=== PATIENT | male | born 1950 | race Caucasian/White ===

== ENCOUNTER 2021-05-25 11:17 | Outpatient (REF) | payer OTHER, SELFPAY ==
[2021-05-26 16:48] LABS: H Pylori Breath Test Negative (Negative)
== END 2021-05-25 11:18 | disposition home or self-care (01) ==
LOC: HO.LNP 11:17
PROVIDERS: PCP Internal Medicine; Visit Provider Nurse Practitioner Family
DX: K44.9 Diaphragmatic hernia without obstruction or gangrene (principal); K21.9 Gastro-esophageal reflux disease without esophagitis
CPT/HCPCS: 83013; 99202

== ENCOUNTER 2021-07-30 07:53 | Outpatient (REF) | payer OTHER, SELFPAY ==
[2021-07-30 10:04] LABS: TSH reflex Free T4 1.56 uIU/mL (0.32-4.0)
[2021-07-30 10:16] LABS: Folate 18.1 ng/mL (> or = 4.0); Vitamin B12 509 pg/mL (200-900)
[2021-08-02 22:36] LABS: Transglutaminase Ab IgG <1.0 U/mL; Transglutaminase IgA <1.0 U/mL
[2021-08-05 12:36] LABS: Vitamin D 25-OH, D2 <4 ng/mL; Vitamin D 25-OH, D3 43 ng/mL; Vitamin D 25-OH, Total 43 ng/mL (30-100)
== END 2021-07-30 07:54 | disposition home or self-care (01) ==
LOC: HO.LAB 07:53
PROVIDERS: PCP Internal Medicine; Visit Provider Nurse Practitioner Family
DX: R10.9 Unspecified abdominal pain (principal); K21.9 Gastro-esophageal reflux disease without esophagitis; R05.9 Cough, unspecified; R19.7 Diarrhea, unspecified; E55.9 Vitamin D deficiency, unspecified; Z12.11 Encounter for screening for malignant neoplasm of colon
CPT/HCPCS: 36415; 82306; 82607; 82746; 84443; 86364; 99212

== ENCOUNTER 2021-08-06 08:38 | Outpatient (REF) | payer OTHER, SELFPAY ==
[2021-08-13 13:19] LABS: Pancreatic Elastase-1 >500 mcg/g
== END 2021-08-06 08:39 | disposition home or self-care (01) ==
LOC: HO.LNP 08:38
PROVIDERS: Visit Provider Nurse Practitioner Family
DX: R10.9 Unspecified abdominal pain (principal)
CPT/HCPCS: 82656

== ENCOUNTER 2021-11-17 11:27 | Day surgery (SDC) | payer OTHER, SELFPAY ==
[2021-11-11 12:23] VITALS: BMI 30.1
[2021-11-17 12:00] VITALS: BMI 28.0
--- NOTE | 2021-11-17 12:03 | MHC.SHP ---
Pre-Procedural Eval Section A Date of Service: 11/17/21 Section B Chief Complaint: cough,reflux disease Relevant Family History (Specify if Yes): No Relevant Social History: None Present Medications: see Short Stay Collaborative assessment Medical History: Significant History (HTN) History of Previous Operations: Relevant previous surgery/procedure and date(s) (Hx of colonoscopy Hx of hernia repair) Allergies: Allergies Allergy/AdvReac Type Severity Reaction Status Date / Time Penicillins Allergy Severe Unknown Verified 07/30/21 08:02 Review of Systems Sugical H&P ROS: Negative: Constitution, Cardiovascular, Respiratory, Neurological, Psychiatric, Hem-Onc, Allergic/Immunologic, Gastrointestinal, Genitourinary, Musculoskeletal, Integumentary, Endocrine and Eyes/Ears/Nose/Throat Exam Surgical H&P Exam: Normal: HEENT, Normal: Heart, Normal: Lungs, Normal: Extremities, Normal: Abdomen, Normal: Skin and Normal: Neurological Plan Diagnosis/Plan: Unchanged I have reviewed the history and physical and performed a pertinent physical examination on my patient. No changes have occurred unless specified.
--- NOTE | 2021-11-17 12:04 | W.PM.OPN ---
Operative Note Operative Note Date of Service: 11/17/21 Narrative: Procedure Description: EGD Indication: cough and GERD Anesthesia: MAC FLEXIBLE TRANSORAL UPPER GASTROINTESTINAL ENDOSCOPY UPPER ENDOSCOPY Consent: Indications for the procedure and potential complications of bleeding, perforation, reaction to medications and missed diagnosis were discussed with the patient and informed consent was obtained. Instrument: Olympus GIF H 190 J mid size upper endoscope Monitoring: Vital signs and clinical assessment, continuous EKG monitoring, Pulse oximetry, Carbon Dioxide monitoring and blood pressure monitoring were done throughout the procedure. Procedure: The patient was placed in the left lateral decubitis position and pre-procedure medications were administered and a bite block was placed. The endoscope was inserted into the mouth and advanced under direct vision to the third part of duodenum. A careful inspection was made as the upper endoscope was withdrawn including a retroflexed examination of the proximal stomach; Findings and interventions are described below. Findings: Larynx:normal Esophagus: GE junction at 40 cm, diaphragm hiatus at 40 cm, mild bogginess and erythema at GEJ, bx taken from GEJ and distal and proximal areas in different jars Stomach: Patchy gastric erythema. Biopsies were obtained. Grade 2 flap valve on retroflexed examination of the cardia. Duodenum: Normal bulb and descending duodenum, bx taken Intervention: Biopsies as noted above Impression/Findings: esophagitis gastritis PLAN: await bx results may benefit from HERNANDEZ testing if ongoing sx
[2021-11-17 12:06] VITALS: BP 179/89; PULSE 68; RESP 18; TEMP 36.6; O2SAT 96
[2021-11-17] MEDS: Lactated Ringers 1,000 ML 50 ML IVCONT (12:15)
--- NOTE | 2021-11-17 12:26 | P.CONAN_ITS ---
[facility] [place] Active Problems Active Problems: All Active Problems (Updated 05/29/21 @ 17:25 by ROXANN NurMACKENZIE) Hiatal hernia (Acute) Past Medical History Medical History (Updated 05/29/21 @ 17:25 by MARTIN Nur) Hiatal hernia Family History Family History Mother Colon polyps Family history of problems with anesthesia: No Surgical History Surgical History Hx of colonoscopy Hx of hernia repair History of Problems with Anesthesia: No Social History Social History Household Members: Spouse Alcohol intake: current Alcohol intake frequency: 0-2 drinks per day Patient Tobacco Use Status: Former Tobacco user Use of substances other than those prescribed or required for medical reasons: No Are you DNR?: No Advance Directives: No Advance Directives Information Provided: Yes Meds Allergies Allergy/AdvReac Type Severity Reaction Status Date / Time Penicillins Allergy Severe Unknown Verified 07/30/21 08:02 Active Medications: Current Medications Lactated Ringer's (Lr) 1,000 mls @ 50 mls/hr IVCONT .Q20H MARIBELL Last Admin: 11/17/21 12:15 Dose: 50 mls/hr Home Medications Medication Instructions Recorded Confirmed Last Taken Type chlorthalidone 15 mg tablet 15 mg PO DAILY 05/25/21 Unknown History sertraline 25 mg tablet 25 mg PO DAILY 05/25/21 Unknown History valsartan 40 mg tablet 20 mg PO BID 05/25/21 Unknown History Exam Exam Date and Time: November 17, 2021 1226 Height,Weight and Vital Signs: Height 6 ft Weight 93.894 kg Last Vital Signs Temp 97.8 F 11/17/21 12:06 Pulse 68 11/17/21 12:06 Resp 18 11/17/21 12:06 BP 179/89 H 11/17/21 12:06 Pulse Ox 96 11/17/21 12:06 O2 Del Method 11/17/21 12:06 Airway Mallampati Class: II TM Dist: >3cm Neck ROM: Full Heart: rrr Lungs: cta Assessment and Plan Assessment Anesthesia Assessment: Anesthesia Plan Discussed and Chart Reviewed Final Anesthetic Review Family History of Problems with Anesthesia: No History of Problems with Anesthesia: No NPO: Yes ASA Class: II Final Preanesthetic Review: No Changes in Pt Med Stat, Meds/Allgs Chart Reviewed and Consent Obtained/Reviewed Patient Risk: Intermediate Procedure Risk: Intermediate Anesthetic Plan Anesthetic Plan: MAC: Disposition: Standard PACU
[2021-11-17 13:23] VITALS: BP 140/84; PULSE 60; RESP 16; TEMP 36; O2SAT 95
[2021-11-17 13:38] VITALS: BP 149/78; PULSE 53; RESP 16; TEMP 36.1; O2SAT 98
== END 2021-11-17 14:38 | disposition home or self-care (01) ==
PROVIDERS: PCP Internal Medicine; Visit Provider Internal Medicine Gastroenterology
PROC: 0DJ08ZZ Inspection of Upper Intestinal Tract, Via Natural or Artificial Opening Endoscopic (ICD-10-PCS; CPT 43235; principal; 2021-11-17 13:00)
DX: K21.9 Gastro-esophageal reflux disease without esophagitis (principal); K20.80 Other esophagitis without bleeding; K29.60 Other gastritis without bleeding; K44.9 Diaphragmatic hernia without obstruction or gangrene; I10 Essential (primary) hypertension; Z79.899 Other long term (current) drug therapy; Z88.0 Allergy status to penicillin; Z87.891 Personal history of nicotine dependence
CPT/HCPCS: 43239; 88305; 88342

== ENCOUNTER → 2021-12-01 07:52 | Outpatient (BNVA) | payer OTHER, SELFPAY | PROVIDERS: PCP Internal Medicine; Visit Provider Nurse Practitioner Family | DX: K21.00 Gastro-esophageal reflux disease with esophagitis, without bleeding (principal); R05.3 Chronic cough; R19.7 Diarrhea, unspecified | CPT/HCPCS: 99212 ==

== ENCOUNTER → 2022-03-23 11:45 | Outpatient (BNVA) | payer OTHER, SELFPAY | PROVIDERS: PCP Internal Medicine; Referring Provider Internal Medicine; Visit Provider Nurse Practitioner Family | DX: K21.00 Gastro-esophageal reflux disease with esophagitis, without bleeding (principal); R05.3 Chronic cough | CPT/HCPCS: 99212 ==

== ENCOUNTER 2022-06-07 06:24 | Day surgery (SDC) | payer OTHER, SELFPAY ==
[2022-06-02 09:21] VITALS: BMI 28.2
--- NOTE | 2022-06-06 12:45 | HO.ANESPROP2 ---
Documented by User: Ellen Rachel NP 06/06/22 12:46 HPI - Anesthesia Eval Consult details Narrative: 71yo M for Upper Endo [place] PH s/p EGD 10/2021 with MAC PMFSH Active Problems Active Problems: All Active Problems (Updated 06/02/22 @ 09:19 by Radha William RN) Hiatal hernia (Acute) Past Medical History Medical History (Updated 06/07/22 @ 06:37 by Jacqueline Wagner, SHALONDA) Elevated cholesterol Gastritis GERD (gastroesophageal reflux disease) Hiatal hernia HTN (hypertension) Osteoarthritis Family History Family History Mother Colon polyps Family history of problems with anesthesia: No Surgical History Surgical History (Updated 06/07/22 @ 06:35 by Jacqueline Wagner, SHALONDA) History of esophagogastroduodenoscopy (EGD) Hx of arthroscopy of left knee Hx of arthroscopy of right knee Hx of colonoscopy Hx of hernia repair History of Problems with Anesthesia: No Social History Social History Household Members: Spouse Alcohol intake: current Alcohol intake frequency: 0-2 drinks per day Patient Tobacco Use Status: Never used Tobacco Use of substances other than those prescribed or required for medical reasons: No Are you DNR?: No Advance Directives: No Advance Directives Information Provided: Yes Meds Allergies Allergy/AdvReac Type Severity Reaction Status Date / Time Penicillins Allergy Severe Unknown Verified 06/07/22 06:36 Home Medications Medication Instructions Recorded Confirmed Last Taken Type chlorthalidone 15 mg tablet 15 mg PO DAILY 05/25/21 06/07/22 Unknown History valsartan 40 mg tablet 20 mg PO BID 05/25/21 06/07/22 Unknown History minoxidil 2.5 mg tablet 2.5 mg PO DAILY 03/23/22 06/07/22 Unknown History lovastatin 20 mg tablet 20 mg PO QPM 06/07/22 06/07/22 Unknown History Exam Exam Date and Time: June 06, 2022 1245 Height,Weight and Vital Signs: Height 6 ft Weight 94.347 kg Assessment and Plan Assessment Anesthesia Assessment: Chart Reviewed Final Anesthetic Review Family History of Problems with Anesthesia: No History of Problems with Anesthesia: No Documented by User: Doris Dodge MD 06/07/22 07:48 REPLACED BY [facility] Past Medical History Medical History (Updated 06/07/22 @ 06:37 by Jacqueline Wagner, RN) Elevated cholesterol Gastritis GERD (gastroesophageal reflux disease) Hiatal hernia HTN (hypertension) Osteoarthritis Family History Family History Mother Colon polyps Surgical History Surgical History (Updated 06/07/22 @ 06:35 by Jacqueline Wagner, SHALONDA) History of esophagogastroduodenoscopy (EGD) Hx of arthroscopy of left knee Hx of arthroscopy of right knee Hx of colonoscopy Hx of hernia repair Social History Social History Household Members: Spouse Alcohol intake: current Alcohol intake frequency: 0-2 drinks per day Patient Tobacco Use Status: Never used Tobacco Use of substances other than those prescribed or required for medical reasons: No Are you DNR?: No Advance Directives: No Advance Directives Information Provided: Yes Meds Allergies Allergy/AdvReac Type Severity Reaction Status Date / Time Penicillins Allergy Severe Unknown Verified 06/07/22 06:36 Home Medications Medication Instructions Recorded Confirmed Last Taken Type chlorthalidone 15 mg tablet 15 mg PO DAILY 05/25/21 06/07/22 Unknown History valsartan 40 mg tablet 20 mg PO BID 05/25/21 06/07/22 Unknown History minoxidil 2.5 mg tablet 2.5 mg PO DAILY 03/23/22 06/07/22 Unknown History lovastatin 20 mg tablet 20 mg PO QPM 06/07/22 06/07/22 Unknown History Exam Airway Mallampati Class: II TM Dist: >3cm Neck ROM: Full Heart: rr Lungs: cta Assessment and Plan Assessment Anesthesia Assessment: Anesthesia Plan Discussed Final Anesthetic Review NPO: Yes ASA Class: II Final Preanesthetic Review: No Changes in Pt Med Stat, Meds/Allgs Chart Reviewed, Consent Obtained/Reviewed and Anes Risks/Benef Reviewed Patient Risk: Low Procedure Risk: Low Anesthetic Plan Anesthetic Plan: MAC: Disposition: Standard PACU
[2022-06-07 06:49] VITALS: BP 121/77; PULSE 68; RESP 15; TEMP 36.7; O2SAT 98
[2022-06-07] MEDS: Lactated Ringers 1,000 ML 100 ML IVCONT (06:55)
--- NOTE | 2022-06-07 08:44 | P.HPSUR_ITS ---
Pre-Procedural Eval Section A Date of Service: 06/07/22 Section B Chief Complaint: Chronic cough,reflux disease Relevant Family History (Specify if Yes): No Relevant Social History: Alcohol Use Present Medications: see Short Stay Collaborative assessment Medical History: Significant History (Elevated cholesterol Gastritis GERD (gastroesophageal reflux disease) Hiatal hernia HTN (hypertension) Osteoarth ritis) History of Previous Operations: Relevant previous surgery/procedure and date(s) (History of esophagogastroduodenoscopy (EGD) Hx of arthroscopy of left knee Hx of arthroscopy of right knee Hx of colonoscopy Hx of hernia repair) Allergies: Allergies Allergy/AdvReac Type Severity Reaction Status Date / Time Penicillins Allergy Severe Unknown Verified 06/07/22 06:36 Review of Systems Sugical H&P ROS: Negative: Constitution, Cardiovascular, Respiratory, Neurological, Psychiatric, Hem-Onc, Allergic/Immunologic, Gastrointestinal, Genitourinary, Musculoskeletal, Integumentary, Endocrine and Eyes/Ears/Nose/Throat Exam Surgical H&P Exam: Normal: HEENT, Normal: Heart, Normal: Lungs, Normal: Extremities, Normal: Abdomen, Normal: Skin and Normal: Neurological Plan Diagnosis/Plan: Unchanged I have reviewed the history and physical and performed a pertinent physical examination on my patient. No changes have occurred unless specified. Time Spent With Patient Time: Total time managing care of this patient today ____ minutes.
--- NOTE | 2022-06-07 08:45 | W.PM.OPN ---
Operative Note Operative Note Date of Service: 06/07/22 Narrative: Procedure Description: EGD Indication: GERD Anesthesia: MAC FLEXIBLE TRANSORAL UPPER GASTROINTESTINAL ENDOSCOPY UPPER ENDOSCOPY Consent: Indications for the procedure and potential complications of bleeding, perforation, reaction to medications and missed diagnosis were discussed with the patient and informed consent was obtained. Instrument: Olympus GIF H 190 J mid size upper endoscope Monitoring: Vital signs and clinical assessment, continuous EKG monitoring, Pulse oximetry, Carbon Dioxide monitoring and blood pressure monitoring were done throughout the procedure. Procedure: The patient was placed in the left lateral decubitis position and pre-procedure medications were administered and a bite block was placed. The endoscope was inserted into the mouth and advanced under direct vision to the third part of duodenum. A careful inspection was made as the upper endoscope was withdrawn including a retroflexed examination of the proximal stomach; Findings and interventions are described below. Findings: Larynx: redness around vocal cords Esophagus: GE junction at 43 cm, diaphragm hiatus at 43 cm, mild LA grade A esophagitis noted, bx taken from GEJ and distal esophagus and then HERNANDEZ probe attached at 37 cm. Stomach: Patchy gastric erythema. Biopsies were obtained. Grade 2 flap valve on retroflexed examination of the cardia. Duodenum: bulbar duodenitis, bx taken Intervention: Biopsies as noted above, HERNANDEZ probe attachment Impression/Findings: esophagitis gastritis duodenitis laryngitis PLAN: await data from HERNANDEZ by gross appearances are consistent with significant reflux --he has stopped PPI for this test
[2022-06-07 09:10] VITALS: BP 92/61; PULSE 70; RESP 18; TEMP 36.2; O2SAT 93
[2022-06-07 09:25] VITALS: BP 104/61; PULSE 64; RESP 18; TEMP 36.2; O2SAT 96
== END 2022-06-07 09:56 | disposition home or self-care (01) ==
PROVIDERS: PCP Internal Medicine; Visit Provider Internal Medicine Gastroenterology
PROC: (CPT 43239; principal; 2022-06-07 07:30)
DX: K21.9 Gastro-esophageal reflux disease without esophagitis (principal); K20.80 Other esophagitis without bleeding; K29.70 Gastritis, unspecified, without bleeding; K29.80 Duodenitis without bleeding; J04.0 Acute laryngitis; K44.9 Diaphragmatic hernia without obstruction or gangrene; E78.00 Pure hypercholesterolemia, unspecified; I10 Essential (primary) hypertension; M19.90 Unspecified osteoarthritis, unspecified site; Z79.899 Other long term (current) drug therapy; Z88.0 Allergy status to penicillin
CPT/HCPCS: 43239; 88305; 88342; J2250

== ENCOUNTER 2022-06-21 09:07 | Outpatient (REF) | payer OTHER, SELFPAY | END 2022-06-21 09:08 | disposition home or self-care (01) | LOC: HO.LAB 09:07 | PROVIDERS: PCP Internal Medicine; Visit Provider Nurse Practitioner Family | DX: K21.9 Gastro-esophageal reflux disease without esophagitis (principal); R05.3 Chronic cough; R14.0 Abdominal distension (gaseous) | CPT/HCPCS: 36415; 82785; 86003; 99212 ==